=== PATIENT | female | born 1995 | race Hispanic/Latino ===

== ENCOUNTER 2018-02-06 19:56 | Emergency (ER) | payer OTHER ==
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
[2018-02-06 20:54] LABS: Basophils % (Auto) 0.3 % (0.0-1.8); Eosinophils # (Auto) 0.2 K/mm3 (0.0-0.4); Eosinophils % (Auto) 2.2 % (0.0-4.3); Hematocrit 44.9 % (30.3-42.9); Hemoglobin 15.3 gm/dl (10.1-14.3); Lymphocytes % (Auto) 22.8 % (13.4-35.0); Mean Corpuscular HGB Conc 34 % (30-34); Mean Corpuscular Hemoglobin 31 pg (28-32); Mean Corpuscular Volume 91 fl (79-97); Monocytes # (Auto) 0.5 K/mm3 (0.0-0.8); Monocytes % (Auto) 6.2 % (0.0-7.3); Platelet Count 260 K/mm3 (140-440); Red Blood Count 4.92 M/mm3 (3.65-5.03); Red Cell Distribution Width 12.7 % (13.2-15.2)
[2018-02-06 21:18] LABS: Alanine Aminotransferase 19 units/L (7-56); Albumin 3.8 g/dL (3.9-5); BUN/Creatinine Ratio 13; Blood Urea Nitrogen 9 mg/dL (7-17); Calcium 8.7 mg/dL (8.4-10.2); Hemolysis Index 11
[2018-02-06 21:39] LABS: Bilirubin,Urine NEG (Negative); Blood,Urine NEG (Negative); Color,Urine Yellow (Yellow); Mucus,Urine FEW /HPF; Protein,Urine <15 mg/dL mg/dL (Negative); Urobilinogen,Urine < 2.0 mg/dL (<2.0)
--- NOTE | 2018-02-07 12:45 | Consultation ---
History of Present Illness - Reason for Consult Consult date: 02/07/18 Reason for consult: Mental Health Evaluation Requesting physician: BERNICE MATHIAS - Chief Complaint Chief complaint: "I was stressed" - History of Present Psychiatric Illness 23 y.o. white female presenting to [facility] for SI's and self injury. Today the patient is calm and cooperative during the assessment. She stated that she is going through a lot of stress at home and decided to cut her inner wrist yesterday. The lacerations are superficial on observation. She stated that she been cutting on herself for 2 years when asked. She stated that she wanted to transfer the "mental stuff to pain" so she cut her wrists. She stated being suicidal on admission, but denies it now. She rate her depression 4/10, with 10 being the worse. She stated being dx with depression, but isn't compliant with medication. She stated that she been on several medications, but stop taking them for no reason. She denies SI/HI's and AVH's. She denies any manic episodes in the past. She denies recreational drug use and alcohol consumption (etoh). Medications and Allergies Allergies Allergy/AdvReac Type Severity Reaction Status Date / Time No Known Allergies Allergy Unverified 10/21/15 11:51 Home Medications Medication Instructions Recorded Confirmed Last Taken Type Ibuprofen [Motrin] 800 mg PO Q8HR PRN #60 tablet 10/21/15 Unknown Rx Sulfamethoxazole/Trimethoprim 1 each PO BID #14 tablet 10/21/15 Unknown Rx [Bactrim DS TAB] traMADol [Ultram] 50 mg PO Q6HR PRN #14 tablet 10/21/15 Unknown Rx Past psychiatric history - Past Medical History Past Medical History: No medical history Past Surgical History: - past Psychiatric treatment and history Psych: Depression psychiatric treatment history: Stated a hx of depression. She cannot confirm or deny a fam psy hx. - Social History Social history: lives with family Mental Status Exam - Vital signs Last Vital Signs Temp 97.9 F 02/07/18 09:15 Pulse 78 02/07/18 09:15 Resp 16 02/07/18 09:15 BP 112/84 02/07/18 09:15 Pulse Ox 98 02/07/18 09:15 - Exam Narrative exam: MSE: Appearance: calm, cooperative Behavior: regular eye contact Speech: regular rate and tone Mood: "depressed" Affect: congruent to mood Thought Process: circumstantial Thought Content: denies SI/HI's and AVH's Motor Activity: sitting up in bed Cognition: A/O x3 Insight: variable Judgment: variable Results Result Diagrams: 02/06/18 20:44 02/06/18 20:44 Abnormal lab results 02/06/18 02/06/18 02/06/18 Range/Units 20:44 20:44 20:44 Hgb 15.3 H (10.1-14.3) gm/dl Hct 44.9 H (30.3-42.9) % RDW 12.7 L (13.2-15.2) % Potassium 3.3 L (3.6-5.0) mmol/L Albumin 3.8 L (3.9-5) g/dL Salicylates < 0.3 L (2.8-20.0) mg/dL All other labs normal. Assessment and Plan Assessment and plan: Impression: MDD, recurrent. Today the patient is calm and cooperative during the assessment. The patient has a hx of self injury. DDx: R/O Bipolar DO, R/O Personality DO Recommendation/Plan: Continue 1013 with placement to inpatient psy services. Start Zoloft 50 mg PO daily for depression. Discussed possible suicidality/ medication induced nick with patient reference Zoloft. Discussed generalized coping skills with patient.
[2018-02-07] MEDS: ZOLOFT PO SCH (16:16)
[2018-02-08] MEDS: ZOLOFT PO SCH (12:49)
--- NOTE | 2018-02-08 15:35 | Progress Note ---
Subjective - Reason for Consult Consult date: 02/08/18 Reason for consult: Psychiatry Follow-up - Chief Complaint Chief complaint: "i feel better" 23 y.o. white female presenting to [facility] for SI's and self injury. Today the patient is calm and cooperative during the assessment. She stated that she feels better "mentally" and would like to be discharged soon. She stated that she would need a referral for outpatient psy services. She denies SI/HI's and AVH's. She denies any side effects of her medications. Mental Status Exam - Vital signs Last Vital Signs Temp 97.9 F 02/07/18 09:15 Pulse 78 02/07/18 09:15 Resp 20 02/08/18 09:02 BP 112/84 02/07/18 09:15 Pulse Ox 98 02/08/18 09:02 - Exam Narrative exam: MSE: Appearance: calm, cooperative Behavior: regular eye contact Speech: regular rate and tone Mood: "okay" Affect: congruent to mood Thought Process: circumstantial Thought Content: denies SI/HI's and AVH's Motor Activity: sitting up in bed Cognition: A/O x3 Insight: fair Judgment: fair Assessment and Plan Impression: MDD, recurrent. Today the patient is calm and cooperative during the assessment. The patient has a hx of self injury. DDx: R/O Bipolar DO, R/O Personality DO Recommendation/Plan: Evaluate 1013 in 24 hours to determine proper dispo. Continue Zoloft 50 mg PO daily for depression. Discussed possible suicidality/ medication induced nick with patient reference Zoloft. Discussed generalized coping skills with patient.
[2018-02-09] MEDS: ZOLOFT PO SCH (09:48)
[2018-02-09] MEDS ORDERED: TYLENOL PO ONE (19:57)
[2018-02-10] MEDS: ZOLOFT PO SCH (11:05)
--- NOTE | 2018-02-10 14:42 | Progress Note ---
Subjective - Reason for Consult Consult date: 02/10/18 Reason for consult: Psychiatry Follow-up - Chief Complaint Chief complaint: "I will continue my treatment" 23 y.o. white female presenting to [facility] for SI's and self injury. Today the patient is calm and cooperative during the assessment. She stated that she will continue with outpatient psy services when discharged. Per collateral information from her mother Nancy Bourgeois at [phone], she stated that she is the patient's support. She stated that her daughter will reside with her once discharged. The patient denies SI/HI's and AVH's. She denies any side effects of her medication. Mental Status Exam - Vital signs Last Vital Signs Temp 98.8 F 02/09/18 19:53 Pulse 80 02/09/18 19:53 Resp 16 02/09/18 19:53 BP 115/73 02/09/18 19:53 Pulse Ox 95 02/10/18 09:57 - Exam Narrative exam: MSE: Appearance: calm, cooperative Behavior: regular eye contact Speech: regular rate and tone Mood: "okay" Affect: congruent to mood Thought Process: logical Thought Content: denies SI/HI's and AVH's Motor Activity: sitting up in bed Cognition: A/O x3 Insight: appropriate Judgment: appropriate Assessment and Plan Impression: MDD, recurrent. Today the patient is calm and cooperative during the assessment. The patient is no threat to self. DDx: R/O Bipolar DO, R/O Personality DO Recommendation/Plan: Rescind 1013. Continue Zoloft 50 mg PO daily for depression. Discussed possible suicidality/medication induced nick with patient reference Zoloft. Discussed generalized coping skills with patient. The patient given a referral for [facility] for outpatient psy services.
[2018-02-10 16:39] VITALS: BP 119/72
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
== END 2018-02-10 18:23 ==
LOC: ED 19:56 → EEVIPCON 19:56 → ED 02-10 18:23
DX: F31.9 Bipolar disorder, unspecified (principal); F17.200 Nicotine dependence, unspecified, uncomplicated
CPT/HCPCS: 36415; 80053; 81001; 84703; 85025; 99285; G0480; 80320

== ENCOUNTER 2018-06-03 04:06 | Emergency (ER) | payer SELFPAY ==
[2018-06-03] MEDS ORDERED: MORPHINE IV ONE (04:11)
[2018-06-03] MEDS ORDERED: NACL 0.9% 1000 ML 1,000 ML IV ONE (04:11)
[2018-06-03] MEDS ORDERED: ZOFRAN IV ONE (04:11)
[2018-06-03] MEDS ORDERED: ANCEF/NS 1 GM/50 ML 1 GM/50 ML BAG IV ONE (04:12)
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
[2018-06-03 04:25] LABS: Basophils # (Auto) 0.1 K/mm3 (0.0-0.1); Basophils % (Auto) 0.5 % (0.0-1.8); Eosinophils # (Auto) 0.2 K/mm3 (0.0-0.4); Eosinophils % (Auto) 1.5 % (0.0-4.3); Hematocrit 46.7 % (30.3-42.9); Hemoglobin 16.2 gm/dl (10.1-14.3); Lymphocytes # (Auto) 3.8 K/mm3 (1.2-5.4); Lymphocytes % (Auto) 35.7 % (13.4-35.0); Mean Corpuscular HGB Conc 35 % (30-34); Mean Corpuscular Hemoglobin 32 pg (28-32); Mean Corpuscular Volume 92 fl (79-97); Monocytes # (Auto) 0.7 K/mm3 (0.0-0.8); Monocytes % (Auto) 6.5 % (0.0-7.3); Platelet Count 389 K/mm3 (140-440); Red Blood Count 5.06 M/mm3 (3.65-5.03); Red Cell Distribution Width 12.5 % (13.2-15.2)
[2018-06-03 04:43] LABS: Alanine Aminotransferase 23 units/L (7-56); Albumin 4.9 g/dL (3.9-5); BUN/Creatinine Ratio 14; Blood Urea Nitrogen 14 mg/dL (7-17); Calcium 9.7 mg/dL (8.4-10.2); Hemolysis Index 28
--- NOTE | 2018-06-03 05:00 | XRay Report ---
FINAL REPORT PROCEDURE: XR KNEE BILAT 3V TECHNIQUE: Bilateral knee radiographs, AP and lateral view. HISTORY: Trauma OF BILATERAL KNEE COMPARISON: No prior studies are available for comparison. FINDINGS: Fracture (s) and/or Dislocation(s): There is slight irregularity of the left distal medial femoral condyle, impacted fracture is possible. Further differentiation with advanced cross-sectional imaging would be of benefit. The remaining osseous structures are intact without fracture or dislocation. A mild left knee joint effusion is noted. Joint space(s): Mild narrowing of the joint spaces. Soft tissues: Mild soft tissue swelling over the left knee Bone mineralization: Normal. Foreign bodies: None. IMPRESSION: Slight irregularity of the mid left medial distal femoral condyle, impacted fracture is possible. Mild arthritis.
[2018-06-03 05:40] VITALS: BP 120/75
== END 2018-06-03 06:30 | disposition other institution (70) ==
LOC: ED 04:06
DX: S81.001A Unspecified open wound, right knee, initial encounter (principal); S81.002A Unspecified open wound, left knee, initial encounter; F31.9 Bipolar disorder, unspecified; F17.200 Nicotine dependence, unspecified, uncomplicated; Z88.0 Allergy status to penicillin; W34.09XA Accidental discharge from other specified firearms, initial encounter; Y93.89 Activity, other specified; Y99.8 Other external cause status; Y92.098 Other place in other non-institutional residence as the place of occurrence of the external cause
CPT/HCPCS: 36415; 73562; 80053; 84702; 85025; 86850; 86900; 86901; 96365; 96375; 99291; G0480; J0690; J2270; J2405; J7030; 80320

== ENCOUNTER → 2018-07-29 13:55 | Emergency (ER) | payer SELFPAY | END | disposition left against medical advice (07) | LOC: ED 13:55 | DX: S81.009A Unspecified open wound, unspecified knee, initial encounter (principal); Z53.21 Procedure and treatment not carried out due to patient leaving prior to being seen by health care provider; X58.XXXA Exposure to other specified factors, initial encounter; Y93.89 Activity, other specified; Y92.89 Other specified places as the place of occurrence of the external cause; Y99.8 Other external cause status ==

== ENCOUNTER 2020-07-03 08:56 | Emergency (ER) | payer SELFPAY ==
[2020-07-03 09:04] VITALS: BP 138/84
[2020-07-03] MEDS ORDERED: predniSONE 20 MG TAB PO ONE (09:55)
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
== END 2020-07-03 10:59 | disposition home or self-care (01) ==
LOC: ED 08:56
DX: G51.0 Bell's palsy (principal); F17.200 Nicotine dependence, unspecified, uncomplicated; Z88.0 Allergy status to penicillin; Z79.899 Other long term (current) drug therapy; Z98.890 Other specified postprocedural states
CPT/HCPCS: 99282; J7512

== ENCOUNTER 2022-02-03 23:46 | Emergency (ER) | payer SELFPAY ==
[2022-02-03] MEDS ORDERED: SODIUM CHLORIDE 0.9% 1000 ML 1,000 ML IV ONE (23:56)
[2022-02-03] MEDS ORDERED: ONDANSETRON 4 MG/2 ML INJ IV ONE (23:57)
[2022-02-03] MEDS ORDERED: MORPHINE 4 MG/1 ML INJ IV ONE (23:57)
[2022-02-03] MEDS ORDERED: LORazepam 2 MG/ML VIAL IV ONE (23:57)
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
[2022-02-04 00:31] LABS: Mucus,Urine 2+ /HPF
[2022-02-04 00:34] LABS: Amphetamine Screen,Urine PRESUMPTIVE POSITIVE; Benzodiazepines Screen,Urine PRESUMPTIVE POSITIVE; Cannabinoid Screen,Urine PRESUMPTIVE POSITIVE; Cocaine Screen,Urine PRESUMPTIVE NEGATIVE; Methadone Screen,Urine PRESUMPTIVE NEGATIVE; Opiate Screen,Urine PRESUMPTIVE NEGATIVE
[2022-02-04 00:40] LABS: Bilirubin,Urine Negative (Negative); Blood,Urine Negative (Negative); Color,Urine Dark Yellow (Yellow); Urobilinogen,Urine < 2.0 mg/dL (<2.0)
[2022-02-04 00:57] LABS: Basophils % (Auto) 0.1 % (0.0-1.8); Hematocrit 41.4 % (30.3-42.9); Hemoglobin 13.9 gm/dl (10.1-14.3); Lymphocytes # (Auto) 1.5 K/mm3 (1.2-5.4); Lymphocytes % (Auto) 17.4 % (13.4-35.0); Mean Corpuscular HGB Conc 34 % (30-34); Mean Corpuscular Volume 91 fl (79-97); Monocytes # (Auto) 0.4 K/mm3 (0.0-0.8); Monocytes % (Auto) 5.2 % (0.0-7.3); Platelet Count 265 K/mm3 (140-440); Red Blood Count 4.55 M/mm3 (3.65-5.03); Red Cell Distribution Width 12.7 % (13.2-15.2)
[2022-02-04 01:17] LABS: Blood Urea Nitrogen 14 mg/dL (7-17); Calcium 8.5 mg/dL (8.4-10.2); Hemolysis Index 4
[2022-02-04 01:18] LABS: BUN/Creatinine Ratio 23
[2022-02-04 01:21] LABS: Alanine Aminotransferase 31 units/L (7-56); Albumin 4.1 g/dL (3.9-5); Bilirubin,Direct < 0.2 mg/dL (0-0.2)
[2022-02-04] MEDS ORDERED: ACETAMINOPHEN 325 MG TAB PO ONE (06:17)
[2022-02-04 06:22] VITALS: BP 118/74
--- NOTE | 2022-02-04 12:10 | Emergency Department Report ---
Blank Doc - Documentation Documentation: Patient is not suicidal homicidal. Her only complaint this morning is of a to othache. She was given analgesics and discharged. She is not hearing voices. She had been seen in the ED for drug abuse.
[2022-02-04] MEDS ORDERED: IBUPROFEN 800 MG TAB PO ONE (12:11)
--- NOTE | 2022-02-04 13:31 | Consultation ---
History of Present Illness - Reason for Consult Consult date: 02/04/22 Reason for consult: Mental health evaluation - History of Present Psychiatric Illness ED Note: Patient is 27 years old female with history of polysubstance abuse. Patient brought to the emergency room via EMS for evaluation of heroin withdrawal symptoms. Patient is complaining of diffuse muscle cramping and restlessness. Patient also stated that she used methamphetamine this morning. Patient denied any suicidal or homicidal ideation. No auditory or visual hallucination. The patient is a 27 year old female with history of bipolar who presents to the ED for mental health evaluation. In my encounter with the patient, she is calm, alert and oriented x4. The patient states that she had a bad anxiety attack which she states resulted in her having seizures. The patient is noncompliant with psychotropic medication, states she last took meds about a year ago. The patient denies any current suicidal/homicidal ideation and denies halluci nations. PAST PSYCHIATRIC HISTORY Diagnoses: Bipolar, Polysubstance Suicide attempts or Self-harm behavior: Denies Prior psychiatric hospitalizations: Yes Substance Abuse history: Meth Previous psychiatric medications tried: Unable to recall Outpatient treatment: Unknown PAST MEDICAL HISTORY: None reported Family Psychiatric History: None reported or documented SOCIAL HISTORY Marital Status:Single Living Arrangements: Lives alone Employment Status: Unknown Access to guns/weapons: Denies Education: 11th grade History of Abuse: none reported Legal History: none REVIEW OF SYSTEMS Constitutional: Negative for weight loss ENT: Negative for stridor Respiratory: Negative for cough or hemoptysis All other systems reviewed and are negative MENTAL STATUS EXAMINATION General Appearance and Behavior: Age appropriate, not wearing appropriate clothes, fair eye contact, Cooperation: Engaged Psychomotor Behavior: Psychomotor normal Mood: "good" Affect and affective range: Congruent with stated mood Thought Process: Goal directed Thought Content: Reality oriented Speech: Normal tone and pace Suicidal Ideation: Denies Homicidal Ideation: Denies Hallucinations: Denies Delusions:None Insight and Judgment: Limited insight and judgment Memory: Normal Attention: divided attention impaired Orientation: Alert, oriented Assessment: (1) Polysubstance use disorder (2) Hx of Bipolar Treatment Plan Continue home medications. Risks, benefits and alternatives of medications discussed with the patient, questions answered and consent obtained from patient. PSYCHOTHERAPY: Supportive psychotherapy provided MEDICAL: Per primary team DELIRIUM PRECAUTIONS: Please re-orient patient frequently, keep lights on during the day, and minimize benzodiazepines and opiates as these medications could worsen patient's confusion. [employer] [id number]: per primary DISPOSITION: Do not recommend acute psychiatric inpatient treatment. Software Consultant will provide patient psychiatric outpatient resources. Will sign off. Thanks Thank you for the consult. Case discussed with Dr. Yadav who agrees with current disposition Medications and Allergies Medications and Allergies Allergies Allergy/AdvReac Type Severity Reaction Status Date / Time Penicillins Allergy Hives Verified 07/03/20 08:58 Home Medications Medication Instructions Recorded Confirmed Last Taken Type Sertraline [Zoloft] 50 mg PO QDAY #30 tablet 02/10/18 Unknown Rx Ibuprofen [Motrin 800 MG tab] 800 mg PO Q8HR PRN #60 tablet 02/04/22 Unknown Rx Mental Status Exam - Vital signs Last Vital Signs Temp 98.1 F 02/04/22 01:38 Pulse 86 02/04/22 01:38 Resp 18 02/04/22 06:22 BP 118/74 02/04/22 06:00 Pulse Ox 99 02/04/22 06:00 Results Result Diagrams: 02/04/22 00:35 02/04/22 00:35 Abnormal lab results 02/04/22 02/04/22 02/04/22 Range/Units 00:06 00:35 00:35 RDW 12.7 L (13.2-15.2) % Seg Neutrophils % 77.3 H (40.0-70.0) % Chloride 110.3 H (98-107) mmol/L Total Creatine Kinase (30-135) units/L Ur Specific Eleva 1.035 H (1.003-1.030) Salicylates (2.8-20.0) mg/dL Acetaminophen (10.0-30.0) ug/mL 02/04/22 02/04/22 02/04/22 Range/Units 00:35 00:35 00:35 RDW (13.2-15.2) % Seg Neutrophils % (40.0-70.0) % Chloride (98-107) mmol/L Total Creatine Kinase 146 H (30-135) units/L Ur Specific Eleva (1.003-1.030) Salicylates < 0.3 L (2.8-20.0) mg/dL Acetaminophen 5.5 L (10.0-30.0) ug/mL All other labs normal.
== END 2022-02-04 12:34 | disposition home or self-care (01) ==
LOC: ED 23:46
DX: F11.23 Opioid dependence with withdrawal (principal); F15.20 Other stimulant dependence, uncomplicated; R25.2 Cramp and spasm; Z20.822 Contact with and (suspected) exposure to COVID-19; F17.200 Nicotine dependence, unspecified, uncomplicated; F31.9 Bipolar disorder, unspecified
CPT/HCPCS: 36415; 80048; 80076; 80307; 81001; 82550; 85025; 96361; 96374; 96375; 99285; J2060; J2270; J2405; J7030; U0003; 80320; Q0162; G0480